=== PATIENT | female | born 1970 | race American Indian/Alaskan Native ===

== ENCOUNTER 2021-03-28 13:38 | Emergency (ER) | payer MEDICAID ==
[2021-03-28 15:26] VITALS: BP 126/73
--- NOTE | 2021-03-28 15:32 | Emergency Department Report ---
ED General Adult HPI - General Chief complaint: Eye Problems Stated complaint: EYES SWOLLEN Time Seen by Provider: 03/28/21 15:26 Source: patient Mode of arrival: Ambulatory Limitations: No Limitations - History of Present Illness Initial comments: Patient complains of bilateral eye irritation and swelling starting yesterday. Patient states her symptoms started after wearing cosmetic eye contact lenses. She denies any pain in her eyes, eye drainage, or vision changes. Patient states the swelling significantly decreased after taking Benadryl and icing her eyes. -: Sudden Severity scale (0 -10): 0 - Related Data Previous Rx's Medication Instructions Recorded Last Taken Type Loratadine [Claritin] 10 mg PO QDAY 3 Days #3 tablet 03/28/21 Unknown Rx predniSONE 10 mg PO BID #2 tab 03/28/21 Unknown Rx Allergies Allergy/AdvReac Type Severity Reaction Status Date / Time IV CONTRAST DYE Allergy Swelling Uncoded 03/28/21 15:19 ED Review of Systems ROS: Stated complaint: EYES SWOLLEN Other details as noted in HPI Constitutional: denies: chills, fever, malaise Eyes: denies: eye pain, eye discharge, vision change Neurological: denies: headache, numbness, paresthesias ED Past Medical Hx - Medications Home Medications: Home Medications Medication Instructions Recorded Confirmed Last Taken Type Loratadine [Claritin] 10 mg PO QDAY 3 Days #3 tablet 03/28/21 Unknown Rx predniSONE 10 mg PO BID #2 tab 03/28/21 Unknown Rx ED Physical Exam - General Limitations: No Limitations General appearance: alert, in no apparent distress, obese - Head Head exam: Present: atraumatic, normocephalic - Eye Eye exam: Present: PERRL, EOMI, conjunctival injection (Mild bilateral). Absent: scleral icterus, periorbital swelling, periorbital tenderness - Respiratory Respiratory exam: Absent: respiratory distress - Cardiovascular Cardiovascular Exam: Present: regular rate - Neurological Exam Neurological exam: Present: alert, oriented X3 - Psychiatric Psychiatric exam: Present: normal affect, normal mood - Skin Skin exam: Present: warm, dry, intact, normal color. Absent: rash ED Course Vital Signs 03/28/21 15:24 Temperature 99.0 F Pulse Rate 103 H Respiratory 20 Rate Blood Pressure 126/73 O2 Sat by Pulse 99 Oximetry ED Medical Decision Making - Medical Decision Making Patient complains of bilateral eye irritation and swelling starting yesterday. Patient states her symptoms started after wearing cosmetic eye contact lenses. She denies any pain in her eyes, eye drainage, or vision changes. Patient states the swelling significantly decreased after taking Benadryl and icing her eyes. Patient also denies any foreign body sensation or photophobia We will treat for allergic reaction. She is well-appearing, vitals are normal, she is stable for discharge home. Strict return precaution discussed in detail patient verbalized understanding. Critical care attestation.: If time is entered above; I have spent that time in minutes in the direct care of this critically ill patient, excluding procedure time. ED Disposition Clinical Impression: Irritation of both eyes Disposition: DC-01 TO HOME OR SELFCARE Is pt being admited?: No Condition: Stable Instructions: Contact Dermatitis Prescriptions: Loratadine [Claritin] 10 mg PO QDAY 3 Days #3 tablet predniSONE 10 mg PO BID #2 tab Referrals: PRIMARY CARE, [Referring] - 3-5 Days
== END 2021-03-29 18:00 | disposition home or self-care (01) ==
LOC: ED 13:38
DX: H57.89 Other specified disorders of eye and adnexa (principal); Z91.041 Radiographic dye allergy status; Z79.899 Other long term (current) drug therapy
CPT/HCPCS: 99282

== ENCOUNTER 2021-04-09 10:17 | Emergency (ER) | payer MEDICAID ==
--- NOTE | 2021-04-09 11:18 | Emergency Department Report ---
ED General Adult HPI - General Chief complaint: Medical Clearance Stated complaint: WOUND BLEEDING Time Seen by Provider: 04/09/21 11:14 Source: patient Mode of arrival: Ambulatory Limitations: No Limitations - History of Present Illness Initial comments: Patient is a 50-year-old female presents emergency room with complaints of bleeding from her umbilicus that began earlier today. She states that has been scabbing present and she is not sure if she accidentally scratched the scab while in the shower. She states that it has been intermittently bleeding throughout the day. She states that the skin around the umbilicus is also becoming firm. Patient states that she had a reconstruction of her umbilicus after a cancer procedure. She states she goes to [place] for her cancer care. States that this procedure was performed 1 year ago. She denies any fever, nausea, vomiting, diarrhea. allergy to IV dye, reports she had anaphylaxis - Related Data Previous Rx's Medication Instructions Recorded Last Taken Type Loratadine [Claritin] 10 mg PO QDAY 3 Days #3 tablet 03/28/21 Unknown Rx predniSONE 10 mg PO BID #2 tab 03/28/21 Unknown Rx Ciprofloxacin HCl [Ciprofloxacin 500 mg PO BID 7 Days #28 tablet 04/09/21 Unknown Rx TAB] traMADoL [Ultram 50 MG tab] 50 mg PO Q6HR PRN #10 tablet 04/09/21 Unknown Rx Allergies Allergy/AdvReac Type Severity Reaction Status Date / Time IV CONTRAST DYE Allergy Swelling Uncoded 03/28/21 15:19 ED Review of Systems ROS: Stated complaint: WOUND BLEEDING Other details as noted in HPI Comment: All other systems reviewed and negative ED Past Medical Hx - Past Medical History Previous Medical History?: Yes Hx of Cancer: Yes - Medications Home Medications: Home Medications Medication Instructions Recorded Confirmed Last Taken Type Loratadine [Claritin] 10 mg PO QDAY 3 Days #3 tablet 03/28/21 Unknown Rx predniSONE 10 mg PO BID #2 tab 03/28/21 Unknown Rx Ciprofloxacin HCl [Ciprofloxacin 500 mg PO BID 7 Days #28 tablet 04/09/21 Unknown Rx TAB] traMADoL [Ultram 50 MG tab] 50 mg PO Q6HR PRN #10 tablet 04/09/21 Unknown Rx ED Physical Exam - General Limitations: No Limitations General appearance: alert, in no apparent distress - Head Head exam: Present: atraumatic, normocephalic - Eye Eye exam: Present: normal appearance - ENT ENT exam: Present: mucous membranes moist - Respiratory Respiratory exam: Absent: respiratory distress, accessory muscle use - GI/Abdominal GI/Abdominal exam: Present: tenderness, normal bowel sounds, other (there is dried blood present to the umbilucus, the skin surrounding the umbilicus is firm and erythematous, no obvious purulent drainage ). Absent: guarding, rebound - Neurological Exam Neurological exam: Present: alert, oriented X3 - Psychiatric Psychiatric exam: Present: normal affect, normal mood - Skin Skin exam: Present: warm, dry ED Course Vital Signs 04/09/21 04/09/21 10:41 15:20 Temperature 98.2 F 98.1 F Pulse Rate 101 H 94 H Respiratory 18 18 Rate Blood Pressure 141/91 Blood Pressure 136/86 [Left] O2 Sat by Pulse 100 100 Oximetry - Consultations Consultation #1: 04/09/21 14:[address] Cota, regarding pt presentation and results, he advised she does not need admission and can follow up in office, advised to give pt prescription for ciprofloxacin \ ED Medical Decision Making - Lab Data Result diagrams: 04/09/21 12:02 04/09/21 12:02 Lab Results 04/09/21 04/09/21 04/09/21 Range/Units 12:02 12:02 12:02 WBC 7.5 (4.5-11.0) K/mm3 RBC 4.44 (3.65-5.03) M/mm3 Hgb 12.6 (10.1-14.3) gm/dl Hct 38.8 (30.3-42.9) % MCV 88 (79-97) fl MCH 29 (28-32) pg MCHC 33 (30-34) % RDW 15.1 (13.2-15.2) % Plt Count 334 (140-440) K/mm3 Lymph % (Auto) 28.8 (13.4-35.0) % [place] % (Auto) 7.1 (0.0-7.3) % Eos % (Auto) 1.8 (0.0-4.3) % Baso % (Auto) 0.2 (0.0-1.8) % Lymph # (Auto) 2.2 (1.2-5.4) K/mm3 [place] # (Auto) 0.5 (0.0-0.8) K/mm3 Eos # (Auto) 0.1 (0.0-0.4) K/mm3 Baso # (Auto) 0.0 (0.0-0.1) K/mm3 Seg Neutrophils % 62.1 (40.0-70.0) % Seg Neutrophils # 4.6 (1.8-7.7) K/mm3 Sodium 146 H (137-145) mmol/L Potassium 4.6 (3.6-5.0) mmol/L Chloride 105.4 (98-107) mmol/L Carbon Dioxide 33 H (22-30) mmol/L Anion Gap 12 mmol/L BUN 13 (7-17) mg/dL Creatinine 0.7 (0.6-1.2) mg/dL Estimated GFR > 60 ml/min BUN/Creatinine Ratio 19 % Glucose 90 (65-100) mg/dL Lactic Acid 1.20 (0.7-2.0) mmol/L Calcium 10.5 H (8.4-10.2) mg/dL Total Bilirubin 0.20 (0.1-1.2) mg/dL AST 15 (5-40) units/L ALT 21 (7-56) units/L Alkaline Phosphatase 80 (35-129) units/L Total Protein 7.8 (6.3-8.2) g/dL Albumin 4.2 (3.9-5) g/dL Albumin/Globulin Ratio 1.2 % Vital Signs 04/09/21 04/09/21 10:41 15:20 Temperature 98.2 F 98.1 F Pulse Rate 101 H 94 H Respiratory 18 18 Rate Blood Pressure 141/91 Blood Pressure 136/86 [Left] O2 Sat by Pulse 100 100 Oximetry - Radiology Data Radiology results: report reviewed Ordering Physician: SENG HAZEL Date of Service: 04/09/21 Procedure(s): CT abdomen pelvis wo con Accession Number(s): [id number] cc: SENG HAZEL CT ABDOMEN AND PELVIS WITHOUT IV CONTRAST INDICATION: leaking from umbilicus, abdominal wall indurated. COMPARISON: None available. TECHNIQUE: All CT scans at this facility use dose modulation, automated exposure control, iterative reconstruction or weight based dosing, when appropriate, to reduce radiation dose to as low as reasonably achievable. FINDINGS: Lung Bases: No significant abnormality. Skeletal System: No acute abnormality. ABDOMEN: Liver: No significant abnormality. There is a punctate hypodensity in the anterior left hepatic lobe which is too small to characterize but may be a cyst. Gallbladder: No significant abnormality. Bile Ducts: No significant abnormality. Pancreas: No significant abnormality. Spleen: No significant abnormality. Adrenals: No significant abnormality. Right Kidney: No significant abnormality. Left Kidney: No significant abnormality. Upper GI tract: No significant abnormality. Lymph Nodes: No significant adenopathy. Aorta: No significant abnormality. Additional Findings: There is edema/induration in the anterior abdominal wall subcutaneous fat with overlying skin thickening. There is mild rectus diastases at the umbilicus but no hernia is seen. No abnormality is seen deep to the rectus musculature. PELVIS: Colon: No acute abnormality. Urinary Bladder and Distal Ureters: No significant abnormality. Appendix: No significant abnormality. Lymph Nodes: No significant adenopathy. Additional Findings: None. IMPRESSION: 1. Inflammatory change in the anterior abdominal wall around the umbilicus. Given noncontrast technique, no subcutaneous fluid collection is seen. There is mild umbilical rectus diastases but no hernia is seen. No acute findings deep to the rectus musculature. 2. Incidental findings, as above. Signer Name: Alpesh Quijano MD Signed: 04/09/2021 2:43 PM Workstation Name: [email or web address] Transcribed By: ARNALDO Dictated By: Alpesh Quijano MD Electronically Authenticated By: Alpesh Quijano MD Signed Date/Time: 04/09/211442 DD/ 39 TD/TT: - Medical Decision Making Patient is a 50-year-old female presents emergency room with complaints of bleeding from her umbilicus that began earlier today. She states that has been scabbing present and she is not sure if she accidentally scratched the scab while in the shower. She states that it has been intermittently bleeding throughout the day. She states that the skin around the umbilicus is also becoming firm. Patient states that she had a reconstruction of her umbilicus after a cancer procedure. She states she goes to [place] for her cancer care. States that this procedure was performed 1 year ago. She denies any fever, nausea, vomiting, diarrhea. allergy to IV dye, reports she had anaphylaxis. VSS. on exam: there is dried blood present to the umbilucus, the skin surrounding the umbilicus is firm and erythematous, no obvious purulent drainage. labs are stable. on exam: 1. Inflammatory change in the anterior abdominal wall around the umbilicus. Given noncontrast technique, no subcutaneous fluid collection is seen. There is mild umbilical rectus diastases but no hernia is seen. No acute findings deep to the rectus musculature. 2. Incidental findings, as above. spoke with Dr. Cota, regarding pt presentation and results, he advised she does not need admission and can follow up in office, advised to give pt prescription for ciprofloxacin. Discussed all results with patient and discussed the importance of outpatient follow-up. Discussed return precautions. Advised pt Please take medication as prescribed. Please keep area clean, dry, covered. Wash with antibacterial soap and water pat dry. No hot tub, no pool, no soaking in water. Showering is fine. Follow-up with Dr. Cota, general surgeon or your [place] surgeon. Return to the emergency room for any new or worse mariposa symptoms. Critical care attestation.: If time is entered above; I have spent that time in minutes in the direct care of this critically ill patient, excluding procedure time. ED Disposition Clinical Impression: Abdominal wall cellulitis Disposition: DC-01 TO HOME OR SELFCARE Is pt being admited?: No Does the pt Need Aspirin: No Condition: Stable Instructions: Cellulitis, Adult Additional Instructions: Please take medication as prescribed. Please keep area clean, dry, covered. Wash with antibacterial soap and water pat dry. No hot tub, no pool, no soaking in water. Showering is fine. Follow-up with Dr. Cota, general surgeon or your [facility] surgeon. Return to the emergency room for any new or worsening symptoms. Prescriptions: Ciprofloxacin HCl [Ciprofloxacin TAB] 500 mg PO BID 7 Days #28 tablet traMADoL [Ultram 50 MG tab] 50 mg PO Q6HR PRN #10 tablet PRN Reason: Pain , Severe (7-10) Referrals: VIVIANA ASEED MD [Staff Physician] - 2-3 Days Time of Disposition: 14:59 Print Language: VIETNAMESE
[2021-04-09 12:58] LABS: Alanine Aminotransferase 21 units/L (7-56); Albumin 4.2 g/dL (3.9-5); Blood Urea Nitrogen 13 mg/dL (7-17); Calcium 10.5 mg/dL (8.4-10.2); Hemolysis Index 0
[2021-04-09 13:01] LABS: BUN/Creatinine Ratio 19
[2021-04-09 13:07] LABS: Basophils % (Auto) 0.2 % (0.0-1.8); Eosinophils # (Auto) 0.1 K/mm3 (0.0-0.4); Eosinophils % (Auto) 1.8 % (0.0-4.3); Hematocrit 38.8 % (30.3-42.9); Hemoglobin 12.6 gm/dl (10.1-14.3); Lymphocytes # (Auto) 2.2 K/mm3 (1.2-5.4); Lymphocytes % (Auto) 28.8 % (13.4-35.0); Mean Corpuscular HGB Conc 33 % (30-34); Mean Corpuscular Volume 88 fl (79-97); Monocytes # (Auto) 0.5 K/mm3 (0.0-0.8); Monocytes % (Auto) 7.1 % (0.0-7.3); Platelet Count 334 K/mm3 (140-440); Red Blood Count 4.44 M/mm3 (3.65-5.03); Red Cell Distribution Width 15.1 % (13.2-15.2)
[2021-04-09] MEDS ORDERED: MORPHINE 4 MG/1 ML INJ IV ONE (13:33)
[2021-04-09] MEDS ORDERED: ONDANSETRON 4 MG/2 ML INJ IV ONE (13:33)
[2021-04-09] MEDS ORDERED: SODIUM CHLORIDE 0.9% 1000 ML 1,000 ML IV ONE (13:33)
--- NOTE | 2021-04-09 14:47 | Cat Scan Report ---
CT ABDOMEN AND PELVIS WITHOUT IV CONTRAST INDICATION: leaking from umbilicus, abdominal wall indurated. COMPARISON: None available. TECHNIQUE: All CT scans at this facility use dose modulation, automated exposure control, iterative reconstructi on or weight based dosing, when appropriate, to reduce radiation dose to as low as reasonably achieva ble. FINDINGS: Lung Bases: No significant abnormality. Skeletal System: No acute abnormality. ABDOMEN: Liver: No significant abnormality. There is a punctate hypodensity in the anterior left hepatic lobe which is too small to characterize but may be a cyst. Gallbladder: No significant abnormality. Bile Ducts: No significant abnormality. Pancreas: No significant abnormality. Spleen: No significant abnormality. Adrenals: No significant abnormality. Right Kidney: No significant abnormality. Left Kidney: No significant abnormality. Upper GI tract: No significant abnormality. Lymph Nodes: No significant adenopathy. Aorta: No significant abnormality. Additional Findings: There is edema/induration in the anterior abdominal wall subcutaneous fat with o verlying skin thickening. There is mild rectus diastases at the umbilicus but no hernia is seen. No a bnormality is seen deep to the rectus musculature. PELVIS: Colon: No acute abnormality. Urinary Bladder and Distal Ureters: No significant abnormality. Appendix: No significant abnormality. Lymph Nodes: No significant adenopathy. Additional Findings: None. IMPRESSION: 1. Inflammatory change in the anterior abdominal wall around the umbilicus. Given noncontrast techni que, no subcutaneous fluid collection is seen. There is mild umbilical rectus diastases but no hernia is seen. No acute findings deep to the rectus musculature. 2. Incidental findings, as above. Signer Name: Alpesh Quijano MD Signed: 04/09/2021 2:43 PM Workstation Name: [id number]
[2021-04-09] MEDS ORDERED: PIPERACIL/TAZOBACTA 4.5/NS 100 4.5 GM/100 ML VIAL IV ONE (14:50)
[2021-04-09] MEDS ORDERED: VANCOMYCIN PHARMACY TO DOSE IV SCH (15:00)
[2021-04-09 15:21] VITALS: BP 136/86
== END 2021-04-09 15:32 | disposition home or self-care (01) ==
LOC: ED 10:17
DX: L03.311 Cellulitis of abdominal wall (principal); Z85.9 Personal history of malignant neoplasm, unspecified; Z91.040 Latex allergy status
CPT/HCPCS: 36415; 74176; 80053; 82140; 85025; 96361; 96374; 96375; 99284; J2270; J2405; J7030

== ENCOUNTER 2021-04-23 10:37 | Emergency (ER) | payer MEDICAID ==
[2021-04-23 11:13] VITALS: BP 114/69
--- NOTE | 2021-04-23 11:45 | Emergency Department Report ---
ED Psych HPI - General Stated Complaint: WANT TO COMMIT SUICIDE Time Seen by Provider: 04/23/21 11:04 - History of Present Illness Initial Comments: Patient is a 50-year-old F [place] female who is presenting with a chief complaint of suicidal ideations and attempt. Patient states she has been drinking heavily and attempt to harm herself as well as using crack cocaine. While in the lobby waiting for room the patient tied a cord around her neck and attempted to hang herself. Patient has 2 major stressors currently. The first is the patient states her best friend yesterday. Patient's friend of breast cancer. The patient herself is also a breast cancer survivor and feels as though her bilateral mastectomies are disfiguring which is why she has been drinking so much. She denies any auditory or visual hallucinations at this time. - Related Data Previous Rx's Medication Instructions Recorded Last Taken Type Loratadine [Claritin] 10 mg PO QDAY 3 Days #3 tablet 03/28/21 Unknown Rx predniSONE 10 mg PO BID #2 tab 03/28/21 Unknown Rx Ciprofloxacin HCl [Ciprofloxacin 500 mg PO BID 7 Days #28 tablet 04/09/21 Unknown Rx TAB] traMADoL [Ultram 50 MG tab] 50 mg PO Q6HR PRN #10 tablet 04/09/21 Unknown Rx Allergies Allergy/AdvReac Type Severity Reaction Status Date / Time IV CONTRAST DYE Allergy Swelling Uncoded 03/28/21 15:19 ED Review of Systems ROS: Stated complaint: WANT TO COMMIT SUICIDE Other details as noted in HPI Comment: All other systems reviewed and negative ED Past Medical Hx - Social History Smoking Status: Unknown if ever smoked Substance Use Type: None - Medications Home Medications: Home Medications Medication Instructions Recorded Confirmed Last Taken Type Loratadine [Claritin] 10 mg PO QDAY 3 Days #3 tablet 03/28/21 Unknown Rx predniSONE 10 mg PO BID #2 tab 03/28/21 Unknown Rx Ciprofloxacin HCl [Ciprofloxacin 500 mg PO BID 7 Days #28 tablet 04/09/21 Unknown Rx TAB] traMADoL [Ultram 50 MG tab] 50 mg PO Q6HR PRN #10 tablet 04/09/21 Unknown Rx ED Physical Exam - General General appearance: alert, in no apparent distress - Head Head exam: Present: atraumatic, normocephalic - Eye Eye exam: Present: normal appearance - ENT ENT exam: Present: mucous membranes moist - Neck Neck exam: Present: normal inspection - Respiratory Respiratory exam: Present: normal lung sounds bilaterally. Absent: respiratory distress, wheezes, rales, rhonchi - Cardiovascular Cardiovascular Exam: Present: regular rate, normal rhythm, normal heart sounds. Absent: systolic murmur, diastolic murmur, rubs, gallop - GI/Abdominal GI/Abdominal exam: Present: soft, normal bowel sounds. Absent: distended, tenderness, guarding, rebound - Extremities Exam Extremities exam: Present: normal inspection - Back Exam Back exam: Present: normal inspection - Neurological Exam Neurological exam: Present: alert, oriented X3 - Psychiatric Psychiatric exam: Present: normal affect, normal mood - Skin Skin exam: Present: warm, dry, intact, normal color. Absent: rash ED Course Vital Signs 04/23/21 11:09 Temperature 98.9 F Pulse Rate 90 Respiratory 16 Rate Blood Pressure 114/69 O2 Sat by Pulse 100 Oximetry - Reevaluation(s) Reevaluation #1: 04/23/21 13:24 Patient is medically cleared at this time. ED Medical Decision Making - Lab Data Result diagrams: 04/23/21 11:53 04/23/21 11:53 Lab Results 04/23/21 04/23/21 04/23/21 Range/Units 11:09 11:09 11:53 WBC 5.1 (4.5-11.0) K/mm3 RBC 4.46 (3.65-5.03) M/mm3 Hgb 12.7 (10.1-14.3) gm/dl Hct 38.9 (30.3-42.9) % MCV 87 (79-97) fl MCH 29 (28-32) pg MCHC 33 (30-34) % RDW 15.3 H (13.2-15.2) % Plt Count 265 (140-440) K/mm3 Lymph % (Auto) 33.5 (13.4-35.0) % [place] % (Auto) 9.3 H (0.0-7.3) % Eos % (Auto) 1.3 (0.0-4.3) % Baso % (Auto) 0.3 (0.0-1.8) % Lymph # (Auto) 1.7 (1.2-5.4) K/mm3 [place] # (Auto) 0.5 (0.0-0.8) K/mm3 Eos # (Auto) 0.1 (0.0-0.4) K/mm3 Baso # (Auto) 0.0 (0.0-0.1) K/mm3 Seg Neutrophils % 55.6 (40.0-70.0) % Seg Neutrophils # 2.8 (1.8-7.7) K/mm3 Estimated GFR ml/min BUN/Creatinine Ratio % Total Bilirubin (0.1-1.2) mg/dL Albumin/Globulin Ratio % Urine Color Yellow (Yellow) Urine Turbidity Clear (Clear) Urine pH 6.0 (5.0-7.0) Ur Specific [place] 1.010 (1.003-1.030) Urine Protein <15 mg/dl (Negative) mg/dL Urine Glucose (UA) Neg (Negative) mg/dL Urine Ketones Neg (Negative) mg/dL Urine Blood Neg (Negative) Urine Nitrite Neg (Negative) Urine Bilirubin Neg (Negative) Urine Urobilinogen < 2.0 (<2.0) mg/dL Ur Leukocyte Esterase Neg (Negative) Urine WBC (Auto) < 1.0 (0.0-6.0) /HPF Urine RBC (Auto) 1.0 (0.0-6.0) /HPF U Epithel Cells (Auto) < 1.0 (0-13.0) /HPF Urine Bacteria (Auto) 1+ (Negative) /HPF Urine Mucus Few /HPF Urine Opiates Screen Negative Urine Methadone Screen Negative Acetaminophen (10.0-30.0) ug/mL Ur Barbiturates Screen Negative Ur Phencyclidine Scrn Negative Ur Amphetamines Screen Negative U Benzodiazepines Scrn Negative Urine Cocaine Screen Positive U Marijuana (THC) Screen Negative Drugs of Abuse Note Disclamer Plasma/Serum Alcohol (0-0.07) % 04/23/21 04/23/21 04/23/21 Range/Units 11:53 11:53 11:53 WBC (4.5-11.0) K/mm3 RBC (3.65-5.03) M/mm3 Hgb (10.1-14.3) gm/dl Hct (30.3-42.9) % MCV (79-97) fl MCH (28-32) pg MCHC (30-34) % RDW (13.2-15.2) % Plt Count (140-440) K/mm3 Lymph % (Auto) (13.4-35.0) % [place] % (Auto) (0.0-7.3) % Eos % (Auto) (0.0-4.3) % Baso % (Auto) (0.0-1.8) % Lymph # (Auto) (1.2-5.4) K/mm3 [place] # (Auto) (0.0-0.8) K/mm3 Eos # (Auto) (0.0-0.4) K/mm3 Baso # (Auto) (0.0-0.1) K/mm3 Seg Neutrophils % (40.0-70.0) % Seg Neutrophils # (1.8-7.7) K/mm3 Estimated GFR > 60 ml/min BUN/Creatinine Ratio 24 % Total Bilirubin < 0.20 (0.1-1.2) mg/dL Albumin/Globulin Ratio 1.3 % Urine Color (Yellow) Urine Turbidity (Clear) Urine pH (5.0-7.0) Ur Specific [place] (1.003-1.030) Urine Protein (Negative) mg/dL Urine Glucose (UA) (Negative) mg/dL Urine Ketones (Negative) mg/dL Urine Blood (Negative) Urine Nitrite (Negative) Urine Bilirubin (Negative) Urine Urobilinogen (<2.0) mg/dL Ur Leukocyte Esterase (Negative) Urine WBC (Auto) (0.0-6.0) /HPF Urine RBC (Auto) (0.0-6.0) /HPF U Epithel Cells (Auto) (0-13.0) /HPF Urine Bacteria (Auto) (Negative) /HPF Urine Mucus /HPF Urine Opiates Screen Urine Methadone Screen Acetaminophen 5.0 L (10.0-30.0) ug/mL Ur Barbiturates Screen Ur Phencyclidine Scrn Ur Amphetamines Screen U Benzodiazepines Scrn Urine Cocaine Screen U Marijuana (THC) Screen Drugs of Abuse Note Plasma/Serum Alcohol 0.03 (0-0.07) % Critical care attestation.: If time is entered above; I have spent that time in minutes in the direct care of this critically ill patient, excluding procedure time. ED Disposition Clinical Impression: Suicidal ideation, Cocaine abuse, Alcohol abuse, Depression, Grief reaction Disposition: [address] [place] [address] Is pt being admited?: No Does the pt Need Aspirin: No Condition: Undetermined Referrals: ZACHARY DUNN MD [Primary Care Provider] - 3-5 Days
[2021-04-23 11:51] LABS: Bacteria,Urine 1+ /HPF (Negative); Bilirubin,Urine NEG (Negative); Blood,Urine NEG (Negative); Color,Urine Yellow (Yellow); Mucus,Urine FEW /HPF; Protein,Urine <15 mg/dL mg/dL (Negative); Urobilinogen,Urine < 2.0 mg/dL (<2.0); WBC,Urine < 1.0 /HPF (0.0-6.0)
[2021-04-23 11:55] LABS: Amphetamine Screen,Urine Negative; Benzodiazepines Screen,Urine Negative; Cannabinoid Screen,Urine Negative; Methadone Screen,Urine Negative; Opiate Screen,Urine Negative
[2021-04-23 12:07] LABS: Cocaine Screen,Urine Positive
[2021-04-23 12:25] LABS: Basophils % (Auto) 0.3 % (0.0-1.8); Eosinophils # (Auto) 0.1 K/mm3 (0.0-0.4); Eosinophils % (Auto) 1.3 % (0.0-4.3); Hematocrit 38.9 % (30.3-42.9); Hemoglobin 12.7 gm/dl (10.1-14.3); Lymphocytes # (Auto) 1.7 K/mm3 (1.2-5.4); Lymphocytes % (Auto) 33.5 % (13.4-35.0); Mean Corpuscular HGB Conc 33 % (30-34); Mean Corpuscular Volume 87 fl (79-97); Monocytes # (Auto) 0.5 K/mm3 (0.0-0.8); Monocytes % (Auto) 9.3 % (0.0-7.3); Platelet Count 265 K/mm3 (140-440); Red Blood Count 4.46 M/mm3 (3.65-5.03); Red Cell Distribution Width 15.3 % (13.2-15.2)
[2021-04-23 13:08] LABS: Alanine Aminotransferase 25 units/L (7-56); Albumin 4.3 g/dL (3.9-5); BUN/Creatinine Ratio 24; Blood Urea Nitrogen 19 mg/dL (7-17); Calcium 9.5 mg/dL (8.4-10.2); Hemolysis Index 3
== END 2021-04-23 12:00 ==
LOC: ED 10:37
DX: R45.851 Suicidal ideations (principal); F14.10 Cocaine abuse, uncomplicated; F10.10 Alcohol abuse, uncomplicated; F32.9 Major depressive disorder, single episode, unspecified; F43.20 Adjustment disorder, unspecified; Z91.041 Radiographic dye allergy status
CPT/HCPCS: 36415; 80053; 80307; 80320; 81001; 85025; 99283; 99285; G0480